=== PATIENT | female | born 1990 | race Caucasian/White ===

== ENCOUNTER → 2023-03-22 08:56 | Outpatient (BNVA) | payer SELFPAY | PROVIDERS: Visit Provider Physician Assistant Medical ==

== ENCOUNTER 2023-06-15 07:45 | Outpatient (REF) | payer OTHER, SELFPAY ==
[2023-06-15 08:39] LABS: Hematocrit 40.9 % (37.0-47.0); Hemoglobin 13.1 g/dl (12.0-16.0); Mean Corpuscular Hemoglobin 27.8 pg (27.0-33.0); Mean Corpuscular Volume 86.7 fL (80.0-98.0); Mean Platelet Volume 8.8 fL (9.4-12.3); Platelet Count 380 X10*3/uL (160-400); Red Blood Count 4.72 X10*6/uL (4.20-5.50); Red Cell Distribution Width 14.3 % (11.0-16.0); White Blood Count 8.9 X10*3/uL (4.8-10.8)
[2023-06-15 09:30] LABS: Alanine Aminotransferase 23 U/L (0-31); Albumin Level 3.7 g/dL (3.5-5.0); Alkaline Phosphatase 48 U/L (39-117); Anion Gap 13 (12-20); Aspartate Amino Transferase 17 U/L (5-31); Bilirubin Total 0.3 mg/dL (0.0-1.0); Blood Urea Nitrogen 12 mg/dL (9-16); Calcium 9.5 mg/dL (8.4-10.2); Carbon Dioxide 26 mmol/L (22-29); Chloride 103 mmol/L (96-108); Estimated Glomerular Filt Rate > 60; Glucose Fasting 93 mg/dL (60-99); Sodium 138 mmol/L (135-145); Total Protein 7.6 g/dL (6.5-8.0)
== END 2023-06-15 07:46 | disposition home or self-care (01) ==
LOC: HO.LAB 07:45
PROVIDERS: PCP Physician Assistant; Visit Provider Physician Assistant
DX: I10 Essential (primary) hypertension (principal)
CPT/HCPCS: 36415; 80053; 85027

== ENCOUNTER 2023-07-13 11:13 | Outpatient (AMB) | payer OTHER, SELFPAY ==
--- NOTE | 2023-07-13 11:15 | MHC.PC.OV ---
Vital Signs 07/13/23 11:17 Height 5 ft 2 in Weight 271 lb BMI 49.6 BP 124/86 Blood Pressure Location Lt brachial Position Sitting Respiration 17 Pulse 94 Pulse Source Pulse Oximeter Pulse Oximetry (%) 98 Oxygen Delivery Method Room Air Intake Visit Reasons: [employer]/BP F/U Intake Note: Patient is a new patient here to establish care for HTN. Pt has not seen a primary care physician in over 5 years. Finger Buff Sewer Required: No Accompanied by: Self / Same As Patient Allergies No Known Allergies Allergy (Verified 07/13/23 11:35) Medication List - Last Reconciled 07/13/23 by Tavo Jo PA-C hydrochlorothiazide 12.5 mg PO DAILY 30 days Tobacco use date assessed: 07/13/23 Dental Screening Dental Screen Date: 07/13/23 Did you have a dental visit in the last 12 months?: Yes Did you have a dental problem in the last 6 months where you did not have access to dental care?: No Was dental information given to patient?: Patient has dentist HPI [employer]/BP F/U HPI Details Patient is a 32-year-old female here today for new patient visit. Patient has a past medical history significant for obesity and hypertension. Was recently started on low-dose hydrochlorothiazide and blood pressures seem to have been better managed. Concerns--> Right wrist tendinitis over the last several years. She attributes this to overuse in her job. She has not really used any anti-inflammatory. .. Hypertension: Blood pressure acceptable today in office, will continue current dose of hydrochlorothiazide. She does mention her blood pressure are likely higher due to stress in her life. 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 Reviewed most recent labs in all within normal range. 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 [facility] Surgical History History of hymenectomy S/P tonsillectomy and adenoidectomy Family History (Updated 07/13/23 @ 11:40 by Tavo Jo PA-C) Mother MVA (motor vehicle accident) IBD (inflammatory bowel disease) Father No problems noted. Social History (Updated 07/13/23 @ 11:40 by Tavo Jo PA-C) Housing: House Alcohol intake: current Alcohol intake frequency: holidays/special occasions only Patient Tobacco Use Status: Never used Tobacco e-Cigarette/Vaping Use: Never Used service: No Current occupational status: employed Current occupation: [employer] Cognitive needs: No Hearing needs: No Vision needs: No Questionnaire PHQ-9 Over the last 2 weeks, how often have you been bothered by any of the following problems? 1. Little interest or pleasure in doing things: not at all 2. Feeling down, depressed, or hopeless: not at all 3. Trouble falling or staying asleep, or sleeping too much: not at all 4. Feeling tired or having little energy: not at all 5. Poor appetite or overeating: not at all 6. Feeling bad about yourself - or that you are a failure or have let yourself or your family down: not at all 7. Trouble concentrating on things, such as reading the newspaper or watching television: not at all 8. Moving or speaking so slowly that other people could have noticed. Or the opposite - being so fidgety or restless that you have been moving around a lot more than usual: not at all 9. Thoughts that you would be better off or of hurting yourself in some way: not at all Total score: 0 Depression Screening Interpretation: Negative Depression Screening Done: Yes 25187 - PHQ-9 Billing: Yes Source: Developed by Drs. Jere Prater, Abigail Simms, Emanuel Watt and colleagues, with an educational joseline from [employer]. Thrive Questionnaire Date Thrive assessed: 07/13/23 I am a: Patient What is your living situation today?: I have a steady place to live Within the past 12 months, did the food you bought not last and you didn't have the money to get more?: Never true Within the past 12 months, did you worry whether your food would run out before you got money to buy more?: Never true Do you have trouble paying for medicines?: No Do you have trouble getting transportation to medical appointments?: No Do you have trouble paying your heating and electricity bill?: No Do you have trouble taking care of your child, family member or friend?: No Do you have trouble with day-to-day activities such as bathing, preparing meals, shopping, managing finances, etc.?: No Are you currently unemployed and looking for a job?: No Are you interested in more education?: No Please select the resources that you would like help with: None Currently or been in a relationship where the following occur: no concerns reported THRIVE Score: 0 AUDIT C Alcohol Use Questionnaire (AUDIT-C) 1. How often do you have a drink containing alcohol?: Monthly or less 2. How many drinks containing alcohol do you have on a typical day when you are drinking?: 1 or 2 3. How often do you have six or more drinks on one occasion?: Never Total Score: 1 PHIL-7 AMB Questionnaire PHIL-7 Date PHIL - 7 assessed: 07/13/23 Feeling nervous, anxious, or on edge: 2 = More than half the days Not being able to stop or control worryin = Nearly every day Worrying too much about different things: 3 = Nearly every day Trouble relaxin = Nearly every day Being so restless that it is hard to sit still: 2 = More than half the days Becoming easily annoyed or irritable: 2 = More than half the days Feeling afraid as if something awful might happen: 2 = More than half the days Total PHIL-7 score (0-4 normal; 5-9 mild; 10-14 moderate; 15-21 severe): 17 Source: Developed by Drs. Jere Prater, Abigail Simms, Emanuel Watt and colleagues, with an educational joseline from [employer]. PHIL-7 Assessment Billing PHIL-7 Assessment Tool: PHIL-7 Assessment 08795 Review of Systems Const Denies headache(s) Eyes Denies loss of vision ENT Denies vertigo, Denies dizziness, Denies headache(s) and Denies sore throat Card Denies chest pain, Denies leg edema and Denies lightheadedness Resp Denies cough, Denies hemoptysis and Denies wheezing GI Denies abdominal pain, Denies melena, Denies constipation, Denies diarrhea and Denies vomiting Denies urinary frequency, Denies dysuria and Denies urinary urgency Musc Denies arthralgias, Denies joint swelling, Denies numbness and Denies tingling Neuro Denies Abnormal speech present, Denies behavioral changes, Denies vertigo, Denies dizziness, Denies headache(s), Denies loss of vision, Denies memory loss, Denies numbness and Denies tingling Psych Denies anxiety, Denies behavioral changes, Denies depression, Denies memory loss and Denies panic attacks Mitch/Lymph Denies easy bleeding and Denies easy bruising Aller/Immun Denies wheezing Physical exam (Primary Care) Vital Signs: Last Vital Signs Pulse 94 07/13/23 11:17 Resp 17 07/13/23 11:17 BP 124/86 07/13/23 11:17 Pulse Ox 98 07/13/23 11:17 Oxygen Delivery Method Room Air 07/13/23 11:17 BMI result Body Mass Index 49.6 BMI Assessment/Plan discussion: High BMI High, discussed plan: lifestyle, weight reduction, dietary and physical activity Tobacco/Smoking Status: Tobacco use Status Tobacco use date assessed 07/13/23 07/13/23 11:26 Patient Tobacco Use Status Never used Tobacco 07/13/23 11:40 e-Cigarette/Vaping Use Never Used 07/13/23 11:40 PHQ-9: PHQ-9 Score PHQ-9: Total score 0 07/13/23 11:58 Depression Screening Interpretation: Negative Thrive Assessment: Date of Thrive Assessment Date Thrive assessed 07/13/23 07/13/23 11:26 Currently or been in a relationship where the following occur: no concerns reported Const General: healthy appearing, no acute distress, alert and awake Nutritional Appearance: well nourished Orientation/consciousness: oriented to person, oriented to place and oriented to time HENMT Ears: TM's normal bilaterally General nose exam: Normal nasal mucous membranes and turbinates present Eyes Conjunctivae: conjunctivae normal Sclerae: sclerae normal Pupils: Equal, round and reactive pupils present Neck Neck: Yes no lymphadenopathy and Yes no JVD Thyroid: Thyroid normal Carotids: no bruits Resp Effort & Inspection: normal respiratory effort and not tachypneic Auscultation: no crackles, no rales, no rhonchi and no wheezes Cardio Rate: regular rate Rhythm: regular rhythm Heart sounds: no murmurs and normal S1 and S2 GI Palpation (GI): Soft to palpation, nontender, no hepatomegaly and no splenomegaly Auscultation: normal bowel sounds Skin General skin exam: no rashes or lesions noted and dry skin Neuro General: oriented to person, oriented to place and oriented to time Cranial nerves: Yes Equal, round and reactive pupils present Speech: No Abnormal speech present Gait exam (Neuro): Normal gait present Motor exam (neuro): no tremor noted Extrem Right upper extremity: full ROM Left upper extremity: full ROM Right lower extremity: full ROM; no edema Left lower extremity: full ROM; no edema Psych Mental Status: mental status grossly normal Speech and movement: Normal speech and movement present Affect: normal affect Attitude: cooperative Thought process: Normal thought process present Immunizations Boostrix Tdap 2.5 Lf unit-8 mcg-5 Lf/0.5 mL intramuscular syringe Performing Provider: Tavo Jo PA-C [facility] Administered by: CHHAYA Tarango on 07/13/23 11:58 Dose Route Admin Location Dispensed Lot Number Expiration Date 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 Continues on hydrochlorothiazide 12.5 mg. She attributes her higher blood pressures to stress in life. She takes care of her 90-year-old green. Who needs [id number] care. Goal blood pressures to remain below 140/90 (2) Right wrist tendinitis: Code(s): M77.8 - Other enthesopathies, not elsewhere classified Plan: Patient reports she has been suffering with right wrist tendinitis for years now. Has done physical therapy in the past which has been helpful. Will plan to use an anti-inflammatory as needed, will use risk compression/brace for stabilization. Will consider imaging if wrist swelling/ symptoms worsen (3) PHIL (generalized anxiety disorder): Code(s): F41.1 - Generalized anxiety disorder Plan: Has stress in her life which is causing a lot of havoc. She is interested in speaking with a mental health therapist (4) Obese: Code(s): E66.9 - Obesity, unspecified Qualifiers: Body mass index: BMI 45.0-49.9 Obesity classification: adult class 3 (BMI >= 40) Obesity type: due to excess calories Serious obesity comorbidity presence: without serious comorbidity Qualified Code(s): E66.01 - Morbid (severe) obesity due to excess calories; Z68.42 - Body mass index [BMI] 45.0-49.9, adult Plan: Does understand her BMI is over 40 and will work on being more physically active and adapting to better eating habits to reduce her weight. We did discuss the possibility of starting injectable weight loss medication though hold off on this for now. Orders: Orders Comprehensive Met. Panel Today I10 - Essential (primary) hypertension Microalbumin, Random (w Creat) Today I10 - Essential (primary) hypertension TDaP Immunization Today I10 - Essential (primary) hypertension, Z23 - Encounter for immunization Referrals Counseling Referral F41.1 - Generalized anxiety disorder, Z13.220 - Encounter for screening for lipoid disorders Medications: New meloxicam 15 mg PO DAILY 14 days PRN 14 tabs 1RF pain (scale score 7-10) M77.8 - Other enthesopathies, not elsewhere classified Changed From hydrochlorothiazide 12.5 mg PO DAILY 30 days 30 tabs 1RF I10 - Essential (primary) hypertension To hydrochlorothiazide 12.5 mg PO DAILY 90 days 90 tabs 1RF I10 - Essential (primary) hypertension Coding Level of Care Code New Pt Level 4 (49283) Diagnoses Primary hypertension I10 Hypertension type: primary hypertension Right wrist tendinitis M77.8 PHIL (generalized anxiety disorder) F41.1 Class 3 severe obesity due to excess calories without serious comorbidity with body mass index (BMI) of 45.0 to 49.9 in adult E66.01; Z68.42 Body mass index: BMI 45.0-49.9 Obesity classification: adult class 3 (BMI >= 40) Obesity type: due to excess calories Serious obesity comorbidity presence: without serious comorbidity Additional Codes PHIL-7 Assessment Billing - PHIL-7 Assessment Tool: PHIL-7 Assessment [id number] ([id number])
[2023-07-13 11:17] VITALS: BP 124/86; PULSE 94; RESP 17; O2SAT 98; BMI 49.6
== END 2023-07-13 11:58 | disposition home or self-care (01) ==
PROVIDERS: PCP Physician Assistant; Visit Provider Physician Assistant
DX: Z23 Encounter for immunization (principal); I10 Essential (primary) hypertension; M77.8 Other enthesopathies, not elsewhere classified; E66.01 Morbid (severe) obesity due to excess calories; Z68.42 Body mass index [BMI] 45.0-49.9, adult
CPT/HCPCS: 90471; 90715; 99204

== ENCOUNTER 2024-01-16 08:43 | Outpatient (REF) | payer OTHER, SELFPAY ==
[2024-01-16 10:40] LABS: Albumin Level 3.7 g/dL (3.5-5.0); Alkaline Phosphatase 52 U/L (39-117); Anion Gap 12 (12-20); Bilirubin Total 0.3 mg/dL (0.0-1.0); Blood Urea Nitrogen 10 mg/dL (9-16); Calcium 9.1 mg/dL (8.4-10.2); Carbon Dioxide 25 mmol/L (22-29); Chloride 104 mmol/L (96-108); Estimated Glomerular Filt Rate > 60; Glucose Random 97 mg/dL (60-115); Potassium 3.9 mmol/L (3.3-5.1); Sodium 137 mmol/L (135-145); Total Protein 7.4 g/dL (6.5-8.0)
[2024-01-16 12:40] LABS: Alanine Aminotransferase 23 U/L (0-31); Aspartate Amino Transferase 21 U/L (5-31)
== END 2024-01-16 08:44 | disposition home or self-care (01) ==
LOC: HO.LAB 08:43
PROVIDERS: PCP Physician Assistant; Visit Provider Physician Assistant
DX: I10 Essential (primary) hypertension (principal)
CPT/HCPCS: 36415; 80053

== ENCOUNTER 2024-01-18 15:51 | Outpatient (AMB) | payer OTHER, SELFPAY ==
--- NOTE | 2024-01-18 16:08 | A.OFFPC_ITS ---
Vital Signs 01/18/24 16:26 Height 5 ft 2 in Weight 279 lb 8 oz BMI 51.1 BP 150/92 H Blood Pressure Location Lt brachial Position Sitting Pulse 104 H Pulse Source Pulse Oximeter Pulse Oximetry (%) 98 Oxygen Delivery Method Room Air Intake Visit Reasons: Annual Exam Intake Note: Patient is here today for a physical. 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 Patient has a past medical history significant for obesity and hypertension. --> she reports her stress has been abou t the same though her 90-year-old grandmother is now in a half-way. She is now going to be moving into her grandmother's home that is causing some stress. She is speaking with a mental health therapist that has helped her a lot with her anxiety and stress. Concerns-- Janae reports she has been having some trouble sleeping, she mentioned she will try melatonin to help her sleep. She is not interested in sleeping aid prescription medication at this time .. Hypertension: Has not been taking hydrochlorothiazide. Blood pressure elevated today in office. Hydrochlorothiazide has worked for her to manage her blood pressure in the past. She is willing to restart hydrochlorothiazide. Reviewed most recent labs in all within normal range. 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 Laboratory Tests 06/15/23 01/16/24 08:04 09:03 RBC 4.72 Creatinine 0.73 0.70 Random Glucose 97 PFSH Surgical History History of hymenectomy S/P tonsillectomy and adenoidectomy Family History Mother MVA (motor vehicle accident) IBD (inflammatory bowel disease) Father No problems noted. Social History (Updated 01/18/24 @ 16:36 by Tavo Jo PA-C) Housing: House Alcohol intake: current Alcohol intake frequency: holidays/special occasions only Alcohol type: beer Patient Tobacco Use Status: Never used Tobacco e-Cigarette/Vaping Use: Never Used service: No Current occupational status: employed Current occupation: [employer] Cognitive needs: No Hearing needs: No Vision needs: No Questionnaire PHQ-9 Over the last 2 weeks, how often have you been bothered by any of the following problems? 1. Little interest or pleasure in doing things: several days 2. Feeling down, depressed, or hopeless: several days 3. Trouble falling or staying asleep, or sleeping too much: several days 4. Feeling tired or having little energy: several days 5. Poor appetite or overeating: several days 6. Feeling bad about yourself - or that you are a failure or have let yourself or your family down: not at all 7. Trouble concentrating on things, such as reading the newspaper or watching television: several days 8. Moving or speaking so slowly that other people could have noticed. Or the opposite - being so fidgety or restless that you have been moving around a lot more than usual: not at all 9. Thoughts that you would be better off or of hurting yourself in some way: not at all Total score: 6 68802 - PHQ-9 Billing: Yes Source: Developed by Drs. Jere Prater, Abigail Simms, Emanuel Watt and colleagues, with an educational joseline from [employer]. Thrive Questionnaire Date Thrive assessed: 01/18/24 I am a: Patient What is your living situation today?: I have a steady place to live Within the past 12 months, did the food you bought not last and you didn't have the money to get more?: Never true Within the past 12 months, did you worry whether your food would run out before you got money to buy more?: Never true Do you have trouble paying for medicines?: No Do you have trouble getting transportation to medical appointments?: No Do you have trouble paying your heating and electricity bill?: No Do you have trouble taking care of your child, family member or friend?: No Do you have trouble with day-to-day activities such as bathing, preparing meals, shopping, managing finances, etc.?: No Are you currently unemployed and looking for a job?: No Are you interested in more education?: No Please select the resources that you would like help with: None Currently or been in a relationship where the following occur: No concerns reported THRIVE Score: 0 AUDIT C Alcohol Use Questionnaire (AUDIT-C) 1. How often do you have a drink containing alcohol?: Monthly or less 2. How many drinks containing alcohol do you have on a typical day when you are drinking?: 1 or 2 3. How often do you have six or more drinks on one occasion?: Never Total Score: 1 PHIL-7 AMB Questionnaire PHIL-7 Date PHIL - 7 assessed: 01/18/24 Feeling nervous, anxious, or on edge: 2 = More than half the days Not being able to stop or control worryin = Several days Worrying too much about different things: 2 = More than half the days Trouble relaxin = Nearly every day Being so restless that it is hard to sit still: 2 = More than half the days Becoming easily annoyed or irritable: 3 = Nearly every day Feeling afraid as if something awful might happen: 1 = Several days Total PHIL-7 score (0-4 normal; 5-9 mild; 10-14 moderate; 15-21 severe): 14 Source: Developed by Drs. Jere Prater, Abigail Simms, Emanuel Watt and colleagues, with an educational joseline from [employer]. PHIL-7 Assessment Billing PHIL-7 Assessment Tool: PHIL-7 Assessment 64530 Review of Systems Const Denies excessive sweating, Denies fatigue and Denies headache(s) Eyes Denies loss of vision ENT Denies vertigo, Denies dizziness, Denies headache(s) and Denies sore throat Card Denies chest pain, Denies leg edema and Denies lightheadedness Resp Denies cough, Denies hemoptysis and Denies wheezing GI Denies abdominal pain, Denies melena, Denies constipation, Denies diarrhea and Denies vomiting Denies urinary frequency, Denies dysuria and Denies urinary urgency Musc Denies arthralgias, Denies joint swelling, Denies numbness and Denies tingling Skin/Breast Denies rash and Denies skin ulcer Neuro Denies Abnormal speech present, Denies behavioral changes, Denies vertigo, Denies dizziness, Denies headache(s), Denies loss of vision, Denies memory loss, Denies numbness and Denies tingling Psych Denies anxiety, Denies behavioral changes, Denies depression, Denies memory loss and Denies panic attacks Endo Denies excessive sweating, Denies fatigue, Denies flushing, Denies polydipsia and Denies polyuria Mitch/Lymph Denies easy bleeding and Denies easy bruising Aller/Immun Denies wheezing Physical exam (Primary Care) Vital Signs: Last Vital Signs Pulse 104 H 01/18/24 16:26 BP 150/92 H 01/18/24 16:26 Pulse Ox 98 01/18/24 16:26 Oxygen Delivery Method Room Air 01/18/24 16:26 BMI result Body Mass Index 51.1 Tobacco/Smoking Status: Tobacco use Status Tobacco use date assessed 07/13/23 01/18/24 16:09 Patient Tobacco Use Status Never used Tobacco 01/18/24 16:36 e-Cigarette/Vaping Use Never Used 01/18/24 16:36 PHQ-9: PHQ-9 Score PHQ-9: Total score 6 01/19/24 06:59 Thrive Assessment: Date of Thrive Assessment Date Thrive assessed 01/18/24 01/18/24 16:09 Currently or been in a relationship where the following occur: No concerns reported Const General: healthy appearing, no acute distress, alert and awake Nutritional Appearance: well nourished Orientation/consciousness: oriented to person, oriented to place and oriented to time [facility] Head: Yes normocephalic Ears: TM's normal bilaterally General nose exam: Normal nasal mucous membranes and turbinates present Face and sinus: No sinus tenderness Mouth: Normal oral and palatal mucosa present and tongue normal Teeth and gingiva: dentition normal and gingiva normal Throat: Yes posterior oropharynx normal, Yes tonsils normal and Yes uvula midline Eyes Conjunctivae: conjunctivae normal Sclerae: sclerae normal Pupils: Equal, round and reactive pupils present EOM: EOMs intact bilaterally Direct Ophthalmoscopy: No no photophobia Neck Neck: Yes no lymphadenopathy and Yes no JVD Thyroid: Thyroid normal Carotids: no bruits Chest Chest palpation & inspection: no tenderness Resp Effort & Inspection: normal respiratory effort and not tachypneic Auscultation: no crackles, no rales, no rhonchi and no wheezes Cardio Jugular venous distension: no JVD Rate: regular rate Rhythm: regular rhythm Heart sounds: no murmurs and normal S1 and S2 Bruits: no carotid bruits Peripheral pulses: Peripheral pulses 2+ throughout GI Inspection: Yes normal to inspection, No abdominal wall ecchymosis and No visible herniation Palpation (GI): Soft to palpation, nontender, no hepatomegaly and no spleno megaly Auscultation: normal bowel sounds General: Yes no CVA tenderness Back/Spine/Pelvis Back: no CVA tenderness and No back tenderness Cervical Spine: cervical ROM normal Thoracic/Lumbar Spine: thoracic and lumbar spine normal to inspection, straight leg raise negative bilaterally, No thoraco-lumbar ROM limited and No lumbar spinal tenderness Skin General skin exam: no rashes or lesions noted and dry skin Lesions: no lesions Rashes: no rashes Wounds: no wounds Neuro General: oriented to person, oriented to place and oriented to time Cranial nerves: Yes Equal, round and reactive pupils present Cognition (Neuro): normal cognition Speech: No Abnormal speech present Gait exam (Neuro): Normal gait present Motor exam (neuro): no tremor noted Extrem Right upper extremity: full ROM Left upper extremity: full ROM Right lower extremity: full ROM; no edema Left lower extremity: full ROM; no edema Psych Appearance: grossly normal Mental Status: mental status grossly normal Speech and movement: Normal speech and movement present Affect: normal affect Attitude: cooperative Thought process: Normal thought process present Office Procedures Flu Questionnaire Does the patient have a severe egg allergy?: No Immunizations Fluarix Triv [id number] (PF) 45 mcg (15 mcg x 3)/0.5 mL IM syringe Performing Provider: Tavo Jo PA-C [facility] Documented (not given) by: CHHAYA Tarango on 01/18/24 16:14 Reason Not Given: Patient Refused Coding Level of Care Code Est Pt Prev Care 18-39y([id number]) Diagnoses Annual physical exam Z00.00 Primary hypertension I10 Hypertension type: primary hypertension Class 3 obesity E66.813 PHIL (generalized anxiety disorder) F41.1 Additional Codes PHIL-7 Assessment Billing - PHIL-7 Assessment Tool: PHIL-7 Assessment [id number] ([id number]) Assessment & Plan Assessment & Plan (1) Annual physical exam: Code(s): Z00.00 - Encounter for general adult medical examination without abnormal findings Category: Medical Plan: As per HPI (2) HTN (hypertension): Code(s): I10 - Essential (primary) hypertension Category: Medical Qualifiers: Hypertension type: primary hypertension Qualified Code(s): I10 - Essential (primary) hypertension Plan: Patient's blood pressure elevated today in office. She will restart her hydrochlorothiazide for better blood pressure control. Goal blood pressures to remain below 140/90 (3) Class 3 obesity: Code(s): E66.813 - Obesity, class 3 Category: Medical Plan: Patient does understand her BMI is above 50 will work on better eating habits and more physical activity to reduce her weight. (4) PHIL (generalized anxiety disorder): Code(s): F41.1 - Generalized anxiety disorder Category: Medical Plan: Patient does report her anxiety is still present though has been better since talking to a mental health therapist. She has been having some trouble sleeping as she has had multiple wake ups with racing thoughts. She will try melatonin to help her sleep. Orders: Orders Influenza [id number] Immunization 01/18/24 Z23 - Encounter for immunization Medications: Refilled hydrochlorothiazide 12.5 mg PO DAILY 90 tabs 1RF 90 days I10 - Essential (primary) hypertension Patient Instructions: Goal: Blood pressure to be below 140/90 Barriers: Adherence to physical activity and healthy eating habits
[2024-01-18 16:26] VITALS: BP 150/92; PULSE 104; O2SAT 98; BMI 51.1
== END 2024-01-18 16:51 | disposition home or self-care (01) ==
PROVIDERS: PCP Physician Assistant; Visit Provider Physician Assistant
DX: Z00.00 Encounter for general adult medical examination without abnormal findings (principal); I10 Essential (primary) hypertension; E66.813 Obesity, class 3; Z68.43 Body mass index [BMI] 50.0-59.9, adult; F41.1 Generalized anxiety disorder

== ENCOUNTER → 2024-01-18 15:51 | Outpatient (BNVA) | payer OTHER, SELFPAY | PROVIDERS: PCP Physician Assistant; Visit Provider Physician Assistant | DX: Z00.00 Encounter for general adult medical examination without abnormal findings (principal); I10 Essential (primary) hypertension; F41.1 Generalized anxiety disorder; E66.813 Obesity, class 3; Z68.43 Body mass index [BMI] 50.0-59.9, adult; Z28.21 Immunization not carried out because of patient refusal | CPT/HCPCS: 90471; 96127 ==

== ENCOUNTER 2024-07-19 15:40 | Outpatient (AMB) | payer OTHER, SELFPAY ==
[2024-07-19 15:45] VITALS: BP 168/98; PULSE 99; TEMP 36.2; O2SAT 98; BMI 50.8
--- NOTE | 2024-07-19 15:45 | A.OFFPC_ITS ---
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: No Accompanied by: Self / Same As Patient Allergies No Known Allergies Allergy (Verified 07/19/24 16:11) Medication List - Last Reconciled 07/19/24 by Tavo Jo PA-C hydrochlorothiazide 12.5 mg PO DAILY 90 days L norgest/e.estradiol-e.estrad 0.15 mg-30 mcg (84)/10 mcg (7) 1 tab PO DAILY meloxicam 15 mg PO DAILY PRN 14 days Tobacco use date assessed: 07/19/24 Dental Screening Dental Screen Date: 07/19/24 Did you have a dental visit in the last 12 months?: Yes Did you have a dental problem in the last 6 months where you did not have access to dental care?: No Was dental information given to patient?: Patient has dentist HPI 6 mo follow up HPI Details Patient is a 33-year-old female here today for follow-up visit. Patient has a past medical history significant for obesity and hypertension. Concerns-- Janae reports she has been having some trouble sleeping, she mentioned she will try melatonin to help her sleep. She is not interested in sleeping aid prescription medication at this emelina. She also does report being fairly stressed in her personal life. PHQ-9 and phil 7 scores positive today in office. .. Hypertension: Has not been taking hydrochlorothiazide. Blood pressure elevated today in office. Hydrochlorothiazide has worked for her to manage her blood pressure in the past. She is willing to restart hydrochlorothiazide. .. Class 3 obesity: Patient does understand her BMI is over 45 and will work on being more physically active and adapting to better eating habits to reduce her weight PFSH Surgical History History of hymenectomy S/P tonsillectomy and adenoidectomy Family History Mother MVA (motor vehicle accident) IBD (inflammatory bowel disease) Father No problems noted. Social History Housing: House Alcohol intake: current Alcohol intake frequency: holidays/special occasions only Alcohol type: beer Patient Tobacco Use Status: Never used Tobacco e-Cigarette/Vaping Use: Never Used service: No Current occupational status: employed Current occupation: [employer] Cognitive needs: No Hearing needs: No Vision needs: No Questionnaire PHQ-9 Over the last 2 weeks, how often have you been bothered by any of the following problems? 1. Little interest or pleasure in doing things: more than half the days 2. Feeling down, depressed, or hopeless: more than half the days 3. Trouble falling or staying asleep, or sleeping too much: nearly every day 4. Feeling tired or having little energy: nearly every day 5. Poor appetite or overeating: nearly every day 6. Feeling bad about yourself - or that you are a failure or have let yourself or your family down: nearly every day 7. Trouble concentrating on things, such as reading the newspaper or watching television: several days 8. Moving or speaking so slowly that other people could have noticed. Or the opposite - being so fidgety or restless that you have been moving around a lot more than usual: several days 9. Thoughts that you would be better off or of hurting yourself in some way: not at all Total score: 18 Depression Screening Interpretation: Positive Depression Screening Follow-up: Existing condition Depression Screening Done: Yes 15478 - PHQ-9 Billing: Yes Source: Developed by Drs. Jere Prater, Abigail Simms, Emanuel Watt and colleagues, with an educational joseline from [employer]. Thrive Questionnaire Date Thrive assessed: 07/19/24 I am a: Patient What is your living situation today?: I have a steady place to live Within the past 12 months, did the food you bought not last and you didn't have the money to get more?: Never true Within the past 12 months, did you worry whether your food would run out before you got money to buy more?: Never true Do you have trouble paying for medicines?: No Do you have trouble getting transportation to medical appointments?: No Do you have trouble paying your heating and electricity bill?: No Do you have trouble taking care of your child, family member or friend?: No Do you have trouble with day-to-day activities such as bathing, preparing meals, shopping, managing finances, etc.?: No Are you currently unemployed and looking for a job?: No Are you interested in more education?: No Please select the resources that you would like help with: None Currently or been in a relationship where the following occur: No concerns reported THRIVE Score: 0 AUDIT C Alcohol Use Questionnaire (AUDIT-C) 1. How often do you have a drink containing alcohol?: Monthly or less 2. How many drinks containing alcohol do you have on a typical day when you are drinking?: 1 or 2 3. How often do you have six or more drinks on one occasion?: Never Total Score: 1 PHIL-7 AMB Questionnaire PHIL-7 Date PHIL - 7 assessed: 07/19/24 Feeling nervous, anxious, or on edge: 3 = Nearly every day Not being able to stop or control worryin = Nearly every day Worrying too much about different things: 3 = Nearly every day Trouble relaxin = Nearly every day Being so restless that it is hard to sit still: 1 = Several days Becoming easily annoyed or irritable: 3 = Nearly every day Feeling afraid as if something awful might happen: 1 = Several days Total PHIL-7 score (0-4 normal; 5-9 mild; 10-14 moderate; 15-21 severe): 17 Source: Developed by Drs. Jere Prater, Abigail Simms, Emanuel Watt and colleagues, with an educational joseline from [employer]. PHIL-7 Assessment Billing PHIL-7 Assessment Tool: PHIL-7 Assessment 14730 Review of Systems Const Denies headache(s) Eyes Denies loss of vision ENT Denies vertigo, Denies dizziness, Denies headache(s) and Denies sore throat Card Denies chest pain, Denies leg edema and Denies lightheadedness Resp Denies cough, Denies hemoptysis and Denies wheezing GI Denies abdominal pain, Denies melena, Denies constipation, Denies diarrhea and Denies vomiting Denies urinary frequency, Denies dysuria and Denies urinary urgency Musc Denies arthralgias, Denies joint swelling, Denies numbness and Denies tingling Neuro Denies Abnormal speech present, Denies behavioral changes, Denies vertigo, Denies dizziness, Denies headache(s), Denies loss of vision, Denies memory loss, Denies numbness and Denies tingling Psych Denies anxiety, Denies behavioral changes, Denies depression, Denies memory loss and Denies panic attacks Mitch/Lymph Denies easy bleeding and Denies easy bruising Aller/Immun Denies wheezing Physical exam (Primary Care) Vital Signs: Last Vital Signs Temp 97.1 F 07/19/24 15:45 Pulse 99 07/19/24 15:45 BP 168/98 H 07/19/24 15:45 Pulse Ox 98 07/19/24 15:45 Oxygen Delivery Method Room Air 07/19/24 15:45 Care Plan Goal for BP management: Will restart hydrochlorothiazide to take in the mornings. She promises to be more adherent to the medication Next steps: Monitor blood pressure at home while being adherent hydrochlorothiazide. Will consider additional blood pressure medication if blood pressures remain above 140 systolic BMI result Body Mass Index 50.8 BMI Assessment/Plan discussion: High BMI High, discussed plan: lifestyle, weight reduction, dietary and physical activity Tobacco/Smoking Status: Tobacco use Status Tobacco use date assessed 07/19/24 07/19/24 16:09 Patient Tobacco Use Status Never used Tobacco 07/19/24 15:46 e-Cigarette/Vaping Use Never Used 07/19/24 15:46 PHQ-9: PHQ-9 Score PHQ-9: Total score 18 07/23/24 16:46 Depression Screening Interpretation: Positive Depression Screening Follow-up: Existing condition Thrive Assessment: Date of Thrive Assessment Date Thrive assessed 07/19/24 07/19/24 15:46 Currently or been in a relationship where the following occur: No concerns reported Const General: healthy appearing, no acute distress, alert and awake Nutritional Appearance: well nourished Orientation/consciousness: oriented to person, oriented to place and oriented to time HENMT Ears: TM's normal bilaterally General nose exam: Normal nasal mucous membranes and turbinates present Eyes Conjunctivae: conjunctivae normal Sclerae: sclerae normal Pupils: Equal, round and reactive pupils present Neck Neck: Yes no lymphadenopathy and Yes no JVD Thyroid: Thyroid normal Carotids: no bruits Resp Effort & Inspection: normal respiratory effort and not tachypneic Auscultation: no crackles, no rales, no rhonchi and no wheezes Cardio Rate: regular rate Rhythm: regular rhythm Heart sounds: no murmurs and normal S1 and S2 GI Palpation (GI): Soft to palpation, nontender, no hepatomegaly and no splenomegaly Auscultation: normal bowel sounds Skin General skin exam: no rashes or lesions noted and dry skin Neuro General: oriented to person, oriented to place and oriented to time Cranial nerves: Yes Equal, round and reactive pupils present Speech: No Abnormal speech present Gait exam (Neuro): Normal gait present Motor exam (neuro): no tremor noted Extrem Right upper extremity: full ROM Left upper extremity: full ROM Right lower extremity: full ROM; no edema Left lower extremity: full ROM; no edema Psych Mental Status: mental status grossly normal Speech and movement: Normal speech and movement present Affect: normal affect Attitude: cooperative Thought process: Normal thought process present Coding Level of Care Code Est Pt Level 4 (56399) Diagnoses Primary hypertension I10 Hypertension type: primary hypertension Class 3 obesity E66.813 Right wrist tendinitis M77.8 PHIL (generalized anxiety disorder) F41.1 MDD (major depressive disorder), recurrent episode, moderate F33.1 Environmental allergies Z91.09 Additional Codes PHIL-7 Assessment Billing - PHIL-7 Assessment Tool: PHIL-7 Assessment 98027 ([id number]) PHQ-9 - 00287 - PHQ-9 Billing: Yes ([id number]) Assessment & Plan Assessment & Plan (1) HTN (hypertension): Code(s): I10 - Essential (primary) hypertension Category: Medical Qualifiers: Hypertension type: primary hypertension Qualified Code(s): I10 - Essential (primary) hypertension Plan: Patient's blood pressure elevated today in office. She will restart her hydrochlorothiazide for better blood pressure control. Goal blood pressures to remain below 140/90 (2) Class 3 obesity: Code(s): E66.813 - Obesity, class 3 Category: Medical Plan: Patient does understand her BMI is above 50 will work on better eating habits and more physical activity to reduce her weight. (3) Right wrist tendinitis: Code(s): M77.8 - Other enthesopathies, not elsewhere classified Category: Medical Plan: Continues to have wrist tendinitis to which she will use p.r.n. NSAID. She has made modifications at her job using the computer mouse. She has done physical therapy in the past for similar episodes which was somewhat helpful. (4) PHIL (generalized anxiety disorder): Code(s): F41.1 - Generalized anxiety disorder Category: Medical Plan: Patient's PHIL-7 score positive for anxiety which has been existing condition for her. She does have personal issues that cause her more stress and anxiety. She is not interested in medication or mental health therapy at this time. (5) MDD (major depressive disorder), recurrent episode, moderate: Code(s): F33.1 - Major depressive disorder, recurrent, moderate Category: Medical Plan: As above patient's PHQ-9 score positive for depression which has been existing condition for her. (6) Environmental allergies: Code(s): Z91.09 - Other allergy status, other than to drugs and biological substances Category: Medical Plan: Patient has been suffering with seasonal allergies to which she has been using an over the counter allergy medication without much relief. She is willing to try cetirizine daily for allergy symptoms. Orders: Orders Comprehensive [place]. Panel Fast 07/19/24 I10 - Essential (primary) hypertension Complete Blood Count no Diff 07/19/24 I10 - Essential (primary) hypertension Microalbumin, Random (w Creat) 07/19/24 I10 - Essential (primary) hypertension Medications: New 2 naproxen 375 mg PO BID 20 tabs 0RF 10 days M77.8 - Other enthesopathies, not elsewhere classified cetirizine 10 mg PO DAILY 30 tabs 1RF allergy symptoms 30 days Z91.09 - Other allergy status, other than to drugs and biological substances Refilled hydrochlorothiazide 12.5 mg PO DAILY 90 tabs 1RF 90 days I10 - Essential (primary) hypertension
== END 2024-07-19 16:32 | disposition home or self-care (01) ==
LOC: HO.HMCH 15:41
PROVIDERS: PCP Physician Assistant; Visit Provider Physician Assistant
DX: I10 Essential (primary) hypertension (principal); F33.1 Major depressive disorder, recurrent, moderate; E66.813 Obesity, class 3; Z68.43 Body mass index [BMI] 50.0-59.9, adult; M77.8 Other enthesopathies, not elsewhere classified; F41.1 Generalized anxiety disorder; Z91.09 Other allergy status, other than to drugs and biological substances

== ENCOUNTER → 2024-07-19 15:40 | Outpatient (BNVA) | payer OTHER, SELFPAY | PROVIDERS: PCP Physician Assistant; Visit Provider Physician Assistant | DX: I10 Essential (primary) hypertension (principal); E66.813 Obesity, class 3; Z68.43 Body mass index [BMI] 50.0-59.9, adult; M77.8 Other enthesopathies, not elsewhere classified; F41.1 Generalized anxiety disorder; F33.1 Major depressive disorder, recurrent, moderate; Z91.09 Other allergy status, other than to drugs and biological substances | CPT/HCPCS: 96127 ==

== ENCOUNTER 2025-01-17 09:13 | Outpatient (REF) | payer OTHER, SELFPAY ==
--- OUTSIDE RECORDS SUMMARY | 2025-01-17 08:00 | XMS_ITS | Encounter Summary ---
Author Organization [facility] Address [address] [place] [address] [place] [phone] Phone Care Team Providers Care Drum Cleaner Name Role Phone Tavo Jo Primary Care Provider + Reason for Visit * Reason Comments Annual Exam Encounter Details Date Type Department Care Team (Latest Contact Info) Description 01/17/2025 8:00 AM EDT Office Visit [facility] [address] [place] [id number] Ella Vale MD [address] [facility], [address] [place] [address] [email or web address] Encounter for gynecological examination without abnormal finding (Primary Dx); Encounter for contraceptive management, unspecified type; Screening for cervical cancer; Screening for human immunodeficiency virus; Need for hepatitis C screening test; Need for hepatitis B screening test; Screen for STD (sexually transmitted disease) Social History Tobacco Use Types Packs/Day Years Used Date Smoking Tobacco: Never Smokeless Tobacco: Never Alcohol Use Standard Drinks/Week Comments Yes 0 (1 standard drink = 0.6 oz pur e alcohol) occ Education Answer Date Recorded Are you interested in more education? Not on adenike e 07/23/2022 Are you concerned about learning? Not on file 07/23/2022 No 07/23/2022 No 07/23/2022 Digital Access Answer Date Recorded No 08/20/2022 No 08/20/2022 Reliable internet access at home? Not on file 08/20/2022 Device with a working camera? Not on file Comments No Sex and Gender Information Value Date Recorded Sex Assigned at Not on file Legal Sex Female 9:06 PM EDT Gender Identity Not on file Sexual Orientation Not on file documented as of this encounter Last Filed Vital Signs Vital Sign Reading Time Taken Comments Blood Pressure 132/82 01/17/2025 8:03 AM EDT Pulse - - Temperature - - Respiratory Rate - - Oxygen Saturation - - Inhaled Oxygen Concentration - - Weight 113.4 kg (250 lb) 01/17/2025 8:03 AM EDT pt reported Height - - Body Mass Index 42.91 06/22/2023 3:08 PM EDT documented in this encounter Patient Instructions * Patient Instructions* Ella Vale MD - 01/17/2025 8:00 AM EDT Routine recommendations: If is at all possible - take at least 400 mcg of folate daily in a multivitamin or a B complex of by itself, as this reduces risk of a fetus with neural tube defect if taken prior to conception STD screening : annual chlamydia screen til age 25 if sexually active; HIV at least once at some point in time For strong bones: Vitamin D at least 1000 units daily supplement, unless you are taking in 4 servings of dairy or other D source daily; a free weight strength training program at least twice a week For cardiovascular health: exercise for a good 30 minutes at least 4 times a week; stay active at work; eat a diet with lot of vegetables and fruits ( should be at largest serving at any meal), eliminate or have as little added sugars as possible; remember juice, sodas are a huge sugar load, and artificial sweeteners cause us to crave sweet foods; Fried and high fat foods are not healthy Pap smears - age 21- 30 , every 3 years, without a routine test for Human Papilloma Virus (HPV) Age 30-65, every 5 years with HPV co- testing, every 3 years without Age 65 + - paps no longer done with some exceptions, such as women exposed to STANLEY in utero, or treatment for cervical dysplasia within the previous 25 years Lipid or cholesterol screening- consult with your primary care documented in this encounter Plan of Treatment Scheduled Orders Name Type Priority Associated Diagnoses Orde r Schedule HIV-1/2 antigen/antibody Microbiology Routine Screening for human immunodeficiency virus Expected: 01/17/2025, Expires: 01/17/2026 Hepatitis C antibody, qualitative Microbiology Routine Need for hepatitis C screening test Expected: 01/17/2025, Expires: 01/17/2026 Hepatitis B surface antigen Microbiology Routine Need for hepatitis B screening test Expected: 01/17/2025, Expires: 01/17/2026 Syphilis antibody screen Lab Routine Screen for STD (sexually transmitted disease) Expected: 01/17/2025, Expires: 01/17/2026 documented as of this encounter Visit Diagnoses Diagnosis Encounter for contraceptive management, unspecified type Need for hepatitis C screening test Special screening examination for other specified viral diseases Need for hepatitis B screening test documented in this encounter Care Teams Drum Cleaner Relationship Specialty Start Date End Date Tavo Jo PA [address] [place] [id number] PCP - General Physician Veneer Splicer 06/22/23 documented as of this encounter Additional Source Comments The information contained in this document represents components of the legal health record. It is not the complete legal health record.[facility]
[2025-01-17 09:48] LABS: Hematocrit 41.9 % (37.0-47.0); Hemoglobin 13.4 g/dl (12.0-16.0); Mean Corpuscular HGB Conc 32.0 g/dl (31.0-35.0); Mean Corpuscular Hemoglobin 27.8 pg (27.0-33.0); Mean Corpuscular Volume 86.9 fL (80.0-98.0); NRBC Abs Auto 0.000 X10*3/uL (0.0-0.012); NRBC Pct Auto 0.0 /100WBC (0.0-0.2); Platelet Count 372 X10*3/uL (160-400); Red Blood Count 4.82 X10*6/uL (4.20-5.50); White Blood Count 9.5 X10*3/uL (4.8-10.8)
--- OUTSIDE RECORDS SUMMARY | 2025-01-17 10:09 | XMS_ITS | Clinical Summary ---
Author Organization [facility] Address [address] [place], [place] [id number] Phone Care Team Providers Care Shuttle Operator Name Role Phone Tavo Jo Primary Care Provider + Allergies No known active allergies Medications aspirin-acetamin ophen-caffeine (EXCEDRIN MIGRAINE) 250-250-65 mg per tablet Take 2 tablets by mouth as needed. Active MULTIVITAMIN ORAL Take by mouth daily. Active hydroCHLOROthiaz avi (HYDRODIURIL) 12.5 MG tablet Take 1 tablet by mouth every morning. Active levonorgestrel-e thinyl estradiol (SEASONALE) 0.15-0.03 mg per tabletIndication s:Encounter for contraceptive management, unspecified TAKE 1 TABLET BY MOUTH EVERY DAY 91 tablet 3 Active Additional Information Patient not taking.Reported on 01/17/2025 levonorgestrel and ethynyl estradiol (SEASONIQUE) 0.15 mg-30 mcg (84)/10 mcg (7) 3MPkIndications: Encounter for contraceptive management, unspecified type Take 1 tablet by mouth daily. 91 tablet 3 025 Active levonorgestrel and ethynyl estradiol (SEASONIQUE) 0.15 mg-30 mcg (84)/10 mcg (7) 3MPkIndications: Encounter for contraceptive management, unspecified type Take 1 tablet by mouth daily. 91 tablet 3 024 2024 Discontinued(R eorder) levonorgestrel-e thinyl estradiol (SEASONALE) 0.15-0.03 mg per tabletIndication s:Encounter for contraceptive management, unspecified take 1 tablet by mouth every day 91 tablet 3 024 2024 Discontinued Active Problems Problem Noted Date Diagnosed Date Family planning 06/23/2023 Overview (06/23/2023): Planning to conceive early 2024 On OCP x 19 years Assessment & Plan (06/23/2023 8:01 AM EDT): Unknown what her underlying ovulations are like, had sig amenorrhea prior to starting OCP; suggest stopping a few months prior to time of desired conception; sig risks exist with BMI of 47, incl GDM, LGA baby, gHTN and pre-eclampsia. Also risk miscarriage and difficulty conceiving Recommend starting daily folate now, eating more healthfully, increase exercise and try to lose 10% weight; if desired, see if GP will refer to [facility] weight management office to optimize her efforts and outcome Can also return for consult to go over options for genetic screening, etc Resolved Problems Problem Noted Date Diagnosed Date Resolved Date Irregular menses 08/02/2017 03/08/2022 Assessment & Plan (08/02/2017 5:32 PM EDT): Janae will try Seasonique. She will call if has bothersome side effects to consider other options. Encounters Date Type Department Care Team Description 01/17/2025 8:00 AM EDT Office Visit [facility] [address] [place] [address] [place] [address] Ella Vale MD Encounter for gynecological examination without abnormal finding (Primary Dx); Encounter for contraceptive management, unspecified type; Screening for cervical cancer; Screening for human immunodeficiency virus; Need for hepatitis C screening test; Need for hepatitis B screening test; Screen for STD (sexually transmitted disease) 12/27/2024 Refill [facility] [address] [place] [address] Janae Fox CNM Medication Refill from Last 3 Months Family History Medical History Relation Comments Heart attack Maternal Grandfather Hypertension Maternal Grandfather Stroke Maternal Grandfather Hypertension Maternal Grandmother Other Mother MVA Diabetes Paternal Grandmother Thyroid disease Paternal Grandmother Relation Status Comments Maternal Grandfather Maternal Grandmother Mother Paternal Grandmother Social History Tobacco Use Types Packs/Day Years Used Date Smoking Tobacco: Never Smokeless Tobacco: Never Tobacco Cessation:Counseling Given: Not Answered Alcohol Use Standard Drinks/Week Comments Yes 0 [...] on file Sexual Orientation Not on file Last Filed Vital Signs Vital Sign Reading Time Taken Comments Blood Pressure 132/82 01/17/2025 8:03 AM EDT Pulse - - Temperature - - Respiratory Rate - - Oxygen Saturation - - Inhaled Oxygen Concentration - - Weight 113.4 kg (250 lb) 01/17/2025 8:03 AM EDT pt reported Height 162.6 cm (5' 4 ) 06/22/2023 3:08 PM EDT Body Mass Index 42.91 06/22/2023 3:08 PM EDT Plan of Treatment Health Maintenance Due Date Last Done Comments POTASSIUM LEVEL 1988 DEPRESSION SCREENING 2000 HEPATITIS C SCREENING 2006 HIV ONE-TIME SCREENING (18-6 5 YEARS) 2006 PAP SMEAR 07/30/2023 07/29/2020, 08/02/2017, 08/02/2017 SCREENING FOR DIABETES 09/21/2023 INFLUENZA VACCINE (#1) 2024 COVID-19 VACCINE ( - 2024-2 6 season) 2024 Adult Td,Tdap Booster 07/12/2033 07/13/2023 SMOKING STATUS SCREENING (On ce After 26 Yrs) Completed 01/17/2025 HEPATITIS A VACCINES Aged Out No long er eligible based on patient's age to complete this topic HIB VACCINES Aged Out No longer eligi ble based on patient's age to complete this topic MENINGOCOCCAL VACCINES (ACWY) Aged Out No longer eligible based on patient's age to complete this topic MENINGOCOCCAL VACCINES (B) Aged Out N o longer eligible based on patient's age to complete this topic PNEUMOCOCCAL VACCINES (0-49 years) Aged Out No longer eligible b ased on patient's age to complete this topic Medical Devices Not on file Procedures Procedure Name Priority Date/Time Associated Diagnosis Comments PAP TEST Routine 07/29/2020 12:00 AM EDT from Last 3 Months or Most Recently Relevant to Health Maintenance Results * Pap Smear (07/29/2020 12:00 AM EDT) 07/29/2020 07/30/2020 9:1 8 AM EDT Narrative SEE NARRATIVE - 08/05/2020 1:49 [place] [address] Sandstone Inspector Repairer: Rena Keane MD MARKETING REPRESENTATIVE Cytology Report FINAL DIAGNOSIS A. PAP SMEAR (SUREPATH) CE: SPECIMEN ADEQUACY: Satisfactory for evaluation; transformation zone present. INTERPRETATION: NEGATIVE FOR INTRAEPITHELIAL LESION OR MALIGNANCY. Electronically Signed Out By: RITA Hernandez(ASCP) The Pap test is a screening test primarily for squamous cancers and precursors and has associated false-negative and false-positive results. New technologies such as liquid-based preparations may decrease but will not eliminate all false-negative results. Regular sampling and follow-up of unexplained clinical signs and symptoms are recommended to minimize false negative results. PROCEDURES/ADDENDA HPV Testing (Requested) Ordered Date: 07/30/2020 A. PAP SMEAR (SUREPATH) CE: Human Papilloma Virus Test Negative for high-risk human papillomavirus types 16, 18, 45 and the Other high risk probe set (Includes 31, 33, 35, 39, 51, 52, 56, 58, 59, 66, 68) by [employer] Onclarity HR-HPV analysis. Clinical correlation is advised. This HPV test was performed at [facility], [address] [place] [address]. This test has been FDA approved for SurePath cervical cytology specimens. The accuracy and precision of this test for all other specimen sources has been verified in the Cytopathology Laboratory of the [facility] and has not been cleared or approved by the U.S. Food and Drug Administration. Clinical correlation is advised. CLINICAL HISTORY Date of Last Menstrual Period: 06-12-2020 Other Clinical Conditions: Screening Pap SPECIMEN SOURCE A: PAP SMEAR (SUREPATH) CE Patient Name: JANAE PATEL : 1990 (Age: 29) Sex: F Institution: [facility] Location: [facility] Date of Collection: 07/29/2020 Date of Reported: 08/05/2020 13:49 Results to: Char King MSN, BS Char King PEST CONTROLLER CYTOLOGY ORDERABLES Final Resu lt SEE NARRATIVE from Last 3 Months or Most Recently Relevant to Health Maintenance Insurance [employer] BENEFITS ADMINISTRATORS [facility] BLUE BENEFITS ADMINISTRATORS Care Teams Shuttle Operator Relationship Specialty Start Date End Date Tavo Jo PA [address] [place] [address] PCP - General Physician Tobacco Drying Machine Operator 06/22/23 Additional Source Comments The information contained in this document represents components of the legal health record. It is not the complete legal health record.[facility]
[2025-01-17 10:10] LABS: Alanine Aminotransferase 21 U/L (0-31); Albumin Level 4.1 g/dL (3.5-5.0); Alkaline Phosphatase 64 U/L (39-117); Anion Gap 14 (12-20); Aspartate Amino Transferase 18 U/L (5-31); Blood Urea Nitrogen 13 mg/dL (9-16); Calcium 9.5 mg/dL (8.4-10.2); Carbon Dioxide 25 mmol/L (22-29); Chloride 105 mmol/L (96-108); Estimated Glomerular Filt Rate > 60; Potassium 4.0 mmol/L (3.3-5.1); Sodium 140 mmol/L (135-145); Total Protein 7.9 g/dL (6.5-8.0)
== END 2025-01-17 09:14 | disposition home or self-care (01) ==
LOC: HO.LAB 09:13
PROVIDERS: PCP Physician Assistant; Visit Provider Physician Assistant
DX: I10 Essential (primary) hypertension (principal)
CPT/HCPCS: 36415; 80053; 85027

== ENCOUNTER 2025-01-23 15:51 | Outpatient (AMB) | payer OTHER, SELFPAY ==
--- NOTE | 2025-01-23 16:05 | MHC.PC.OV ---
Vital Signs 01/23/25 16:06 Height 5 ft 2 in Weight 279 lb 6 oz BMI 51.1 BP 150/100 H Blood Pressure Location Lt brachial Position Sitting Respiration 18 Pulse 109 H Pulse Source Pulse Oximeter Temp 97.3 F Temp Source Temporal Artery Scan Pulse Oximetry (%) 99 Oxygen Delivery Method Room Air Intake Visit Reasons: Annual Exam Customer Service Advocate Required: No Accompanied by: Self / Same As Patient Allergies No Known Allergies Allergy (Verified 01/23/25 16:28) Medication List - Last Reconciled 01/23/25 by Tavo Jo PA-C cetirizine 10 mg PO DAILY 30 days hydrochlorothiazide 12.5 mg PO DAILY 90 days L norgest/e.estradiol-e.estrad 0.15 mg-30 mcg (84)/10 mcg (7) 1 tab PO DAILY meloxicam 15 mg PO DAILY PRN 14 days naproxen 375 mg PO BID 10 days Tobacco use date assessed: 01/23/25 Dental Screening Dental Screen Date: 01/23/25 Did you have a dental visit in the last 12 months?: Yes Did you have a dental problem in the last 6 months where you did not have access to dental care?: No Was dental information given to patient?: Patient has dentist HPI Annual Exam HPI Details Patient is a 34-year-old female here today for an annual physical. Patient has a past medical history significant for obesity and hypertension. Concerns-- Janae reports she has been having some trouble sleeping, she mentioned she will try melatonin to help her sleep. She does mentioned her significant other tells her she snores. I suspect she may have obstructive sleep apnea. We did discuss getting a home sleep study though she would like to hold off and work on weight reduction at this time. .. Hypertension: Blood pressure elevated today in office. She has not been taking frequency. She otherwise denies any headaches, chest pain and shortness of breath. She is willing to try a alternative antihypertensive to control her blood pressure. .. Class 3 obesity: Patient has had difficulty losing weight. She is interested in oral medication to help suppress appetite to lose weight. Will send for EKGs for evaluation of an arrhythmia before starting oral weight loss medication. Reviewed most recent labs in all within normal range. 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 [facility] Surgical History History of hymenectomy S/P tonsillectomy and adenoidectomy Family History Mother MVA (motor vehicle accident) IBD (inflammatory bowel disease) Father No problems noted. Social History (Updated 01/23/25 @ 16:31 by Tavo Jo PA-C) Housing: House Alcohol intake: current Alcohol intake frequency: holidays/special occasions only Alcohol type: beer Patient Tobacco Use Status: Never used Tobacco e-Cigarette/Vaping Use: Never Used service: No Current occupational status: employed Current occupation: [employer] Cognitive needs: No Hearing needs: No Vision needs: No Questionnaire Thrive Questionnaire Date Thrive assessed: 01/21/25 I am a: Patient What is your living situation today?: I have a steady place to live Within the past 12 months, did the food you bought not last and you didn't have the money to get more?: Never true Within the past 12 months, did you worry whether your food would run out before you got money to buy more?: Never true Do you have trouble paying for medicines?: No Do you have trouble getting transportation to medical appointments?: No Do you have trouble paying your heating and electricity bill?: No Do you have trouble taking care of your child, family member or friend?: No Do you have trouble with day-to-day activities such as bathing, preparing meals, shopping, managing finances, etc.?: No Are you currently unemployed and looking for a job?: No Are you interested in more education?: No Please select the resources that you would like help with: None Currently or been in a relationship where the following occur: I choose not to answer THRIVE Score: 0 AUDIT C Alcohol Use Questionnaire (AUDIT-C) 1. How often do you have a drink containing alcohol?: 2-4 times a month Total Score: 2 PHIL-7 AMB Questionnaire PHIL-7 Date PHIL - 7 assessed: 07/19/24 Feeling nervous, anxious, or on edge: 2 = More than half the days Not being able to stop or control worryin = More than half the days Worrying too much about different things: 0 = Not at all Trouble relaxin = Several days Being so restless that it is hard to sit still: 1 = Several days Becoming easily annoyed or irritable: 1 = Several days Feeling afraid as if something awful might happen: 0 = Not at all Total PHIL-7 score (0-4 normal; 5-9 mild; 10-14 moderate; 15-21 severe): 7 Source: Developed by Drs. Jere Prater, Abigail Simms, Emanuel Watt and colleagues, with an educational joseline from [employer]. Review of Systems Const Denies body aches, Denies chills, Denies excessive sweating, Denies fatigue, Denies fever(s) and Denies headache(s) Eyes Denies blurry vision ENT Denies dysphagia, Denies vertigo, Denies dizziness, Denies headache(s), Denies hearing loss and Denies tinnitus Card Denies chest pain, Denies chest pain with activity, Denies syncope, Denies irregular heart rhythm and Denies dyspnea Resp Denies chest congestion, Denies cough, Denies hemoptysis, Denies dyspnea and Denies wheezing GI Denies abdominal pain, Denies melena, Denies hematochezia, Denies coffee ground emesis, Denies dysphagia, Denies diarrhea, Denies nausea and Denies vomiting Denies urinary frequency, Denies dysuria, Denies urinary hesitancy and Denies urinary urgency Musc Denies arthralgias, Denies limited range of motion, Denies muscle cramps and Denies muscle weakness Skin/Breast Denies rash and Denies skin ulcer Neuro Denies Abnormal speech present, Denies confusion, Denies vertigo, Denies dizziness, Denies syncope, Denies headache(s), Denies memory loss and Denies seizure-like activity Psych Denies anxiety, Denies confusion, Denies depression, Denies memory loss, Denies panic attacks and Denies paranoia Endo Denies excessive sweating, Denies fatigue, Denies flushing, Denies polydipsia and Denies polyuria Aller/Immun Denies wheezing Physical exam (Primary Care) Vital Signs: Last Vital Signs Temp 97.3 F 01/23/25 16:06 Pulse 109 H 01/23/25 16:06 Resp 18 01/23/25 16:06 BP 150/100 H 01/23/25 16:06 Pulse Ox 99 01/23/25 16:06 Oxygen Delivery Method Room Air 01/23/25 16:06 BMI result Body Mass Index 51.1 BMI Assessment/Plan discussion: High BMI High, discussed plan: lifestyle, weight reduction, dietary and physical activity Tobacco/Smoking Status: Tobacco use Status Tobacco use date assessed 01/23/25 01/23/25 16:15 Patient Tobacco Use Status Never used Tobacco 01/23/25 16:31 e-Cigarette/Vaping Use Never Used 01/23/25 16:31 Thrive Assessment: Date of Thrive Assessment Date Thrive assessed 01/21/25 01/23/25 16:05 Currently or been in a relationship where the following occur: I choose not to answer Const General: cooperative, comfortable, no acute distress, alert and awake; No confusion Orientation/consciousness: oriented to person, oriented to place, patient oriented x3 and No confusion HENMT Head: Yes normocephalic Ears: external ears normal and TM's normal bilaterally Face and sinus: No sinus tenderness Mouth: Normal oral and palatal mucosa present and tongue normal Teeth and gingiva: dentition normal and gingiva normal Throat: Yes posterior oropharynx normal, Yes tonsils normal and Yes uvula midline Eyes Conjunctivae: conjunctivae normal Sclerae: sclerae normal Pupils: Equal, round and reactive pupils present EOM: EOMs intact bilaterally Direct Ophthalmoscopy: No no photophobia Neck Neck: Yes no lymphadenopathy, No tender and Yes no JVD Thyroid: Thyroid normal Carotids: no bruits Chest Chest palpation & inspection: no tenderness Resp Effort & Inspection: normal respiratory effort, no audible wheezes, not labored and no stridor Auscultation: no crackles, no rales, no rhonchi and no wheezes Cardio Jugular venous distension: no JVD Rate: regular rate, not bradycardic and not tachycardic Rhythm: regular rhythm Bruits: no carotid bruits Peripheral pulses: Peripheral pulses 2+ throughout GI Inspection: Yes normal to inspection, No abdominal wall ecchymosis and No visible herniation Palpation (GI): Soft to palpation, nontender, no guarding, not rigid and No hepatosplenomegaly present Auscultation: normoactive bowel sounds General: Yes no CVA tenderness Back/Spine/Pelvis Back: no CVA tenderness and No back tenderness Cervical Spine: cervical ROM normal Thoracic/Lumbar Spine: thoracic and lumbar spine normal to inspection, straight leg raise negative bilaterally, No thoraco-lumbar ROM limited and No lumbar spinal tenderness Skin Lesions: no lesions Rashes: no rashes Wounds: no wounds Neuro General: oriented to person, oriented to place, patient oriented x3, CN's II-XI intact bilaterally and No confusion Cranial nerves: Yes Equal, round and reactive pupils present and Yes Normal accommodation reflex present Cognition (Neuro): normal cognition Speech: No Abnormal speech present Gait exam (Neuro): Normal gait present Motor exam (neuro): 5/5 motor strength present throughout Extrem Right upper extremity: full ROM; no cyanosis Left upper extremity: full ROM; no cyanosis Right lower extremity: no edema Left lower extremity: no edema Psych Appearance: grossly normal Mental Status: mental status grossly normal Affect: normal affect Attitude: cooperative Thought process: Normal thought process present Coding Level of Care Code Est Pt Prev Care 18-39y(10082) Diagnoses Annual physical exam Z00.00 Primary hypertension I10 Hypertension type: primary hypertension Class 3 obesity E66.813 PHIL (generalized anxiety disorder) F41.1 Assessment & Plan Assessment & Plan (1) Annual physical exam: Code(s): Z00.00 - Encounter for general adult medical examination without abnormal findings Category: Medical Plan: As per HPI (2) HTN (hypertension): Code(s): I10 - Essential (primary) hypertension Category: Medical Qualifiers: Hypertension type: primary hypertension Qualified Code(s): I10 - Essential (primary) hypertension Plan: Patient's blood pressure elevated today in office. She does not regularly check her blood pressure at home. Will start losartan 25 mg as an alternative blood pressure medication. Will discontinue hydrochlorothiazide due to side effects or urinary frequency.. Goal blood pressures to remain below 140/90 (3) Class 3 obesity: Code(s): E66.813 - Obesity, class 3 Category: Medical Plan: Patient does understand her BMI is above 50 will work on better eating habits and more physical activity to reduce her weight. Patient interested in oral weight loss medication to help kick start weight loss. Will send for EKGs for evaluation of an arrhythmia before starting medication. (4) PHIL (generalized anxiety disorder): Code(s): F41.1 - Generalized anxiety disorder Category: Medical Plan: Patient's PHIL-7 score positive for anxiety which has been existing condition for her. She does have personal issues that cause her more stress and anxiety. She is not interested in medication or mental health therapy at this time. Orders: Orders ECG 12 lead EKG 01/23/25 E66.813 - Obesity, class 3 Comprehensive Met. Panel 01/23/25 I10 - Essential (primary) hypertension Medications: New losartan 25 mg PO DAILY 30 days 30 tabs 1RF I10 - Essential (primary) hypertension losartan 25 mg PO DAILY 30 tabs 1RF 30 days I10 - Essential (primary) hypertension Discontinued hydrochlorothiazide Discontinued Reason: Doctor's Order 12.5 mg PO DAILY 90 days 90 tabs 1RF I10 - Essential (primary) hypertension
[2025-01-23 16:06] VITALS: BP 150/100; PULSE 109; RESP 18; TEMP 36.3; O2SAT 99; BMI 51.1
--- OUTSIDE RECORDS SUMMARY | 2025-01-23 20:02 | XMS_ITS | Clinical Summary ---
Author Organization [facility] Address [address] [place] [id number] Phone Care Team Providers Care Rn Hospice Name Role Phone Tavo Jo Primary Care Provider + Allergies No known active allergies Medications aspirin-acetamino phen-caffeine (EXCEDRIN MIGRAINE) 250-250-65 mg per tablet Take 2 tablets by mouth as needed. Active MULTIVITAMIN ORAL Take by mouth daily. Active hydroCHLOROthiazi de (HYDRODIURIL) 12.5 MG tablet Take 1 tablet by mouth every morning. 06/09/19 24 Active levonorgestrel and ethynyl estradiol (SEASONIQUE) 0.15 mg-30 mcg (84)/10 mcg (7) 3MPkIndications:E ncounter for contraceptive management, unspecified type Take 1 tablet by mouth daily. 91 tablet 3 01/18/20 25 Active levonorgestrel and ethynyl estradiol (SEASONIQUE) 0.15 mg-30 mcg (84)/10 mcg (7) 3MPkIndications:E ncounter for contraceptive management, unspecified type Take 1 tablet by mouth daily. 91 tablet 3 06/23/19 24 025 Discontinued(Re order) levonorgestrel-et hinyl estradiol (SEASONALE) 0.15-0.03 mg per tabletIndications :Encounter for contraceptive management, unspecified take 1 tablet by mouth every day 91 tablet 3 12/16/19 24 025 Discontinued levonorgestrel-et hinyl estradiol (SEASONALE) 0.15-0.03 mg per tabletIndications :Encounter for contraceptive management, unspecified TAKE 1 TABLET BY MOUTH EVERY DAY 91 tablet 3 01/02/20 25 025 Discontinued Active Problems Problem Noted Date Diagnosed [...] desired, see if GP will refer to [facility] weight management office to optimize her [...] Office Visit [facility] [address] [place] [address] Ella Vale MD Encounter for gynecological examination without abnormal finding (Primary Dx); Encounter for contraceptive management, unspecified type; Screening for human immunodeficiency virus; Need for hepatitis C screening test; Need for hepatitis B screening test; Screen for STD (sexually transmitted disease) 12/27/2024 Refill [facility] [address] [place] [address] Janae Fox CNM Medication Refill from Last [...] SEE NARRATIVE - 08/05/2020 1:49 [place] [address] Demonstrator Knitting: Rena Keane MD BASIC SCIENCES PROFESSOR Cytology Report FINAL DIAGNOSIS A. PAP SMEAR [...] 52, 56, 58, 59, 66, 68) by [employer] Onclarity HR-HPV analysis. Clinical correlation is advised. This HPV test was performed at [facility], [address] [place] [address]. This test has been FDA approved for SurePath cervical cytology specimens. The accuracy and precision of this test for all other specimen sources has been verified in the Cytopathology Laboratory of the [facility] and has not been cleared or approved by the U.S. Food and Drug Administration. Clinical correlation is advised. CLINICAL HISTORY Date of Last Menstrual Period: 06-12-2020 Other Clinical Conditions: Screening Pap SPECIMEN SOURCE A: PAP SMEAR (SUREPATH) CE Patient Name: JANAE PATEL : 1990 (Age: 29) Sex: F Institution: [facility] Location: [facility] Date of Collection: 07/29/2020 Date of Reported: 08/05/2020 13:49 Results to: Char King MSN, BS us Char King SUPERVISOR TUMBLING AND ROLLING CYTOLOGY ORDERABLES Final Resu lt SEE NARRATIVE from Last 3 Months or Most Recently Relevant to Health Maintenance Insurance [employer] [address] [place] [address] One Hour [employer]ENEF[employer] ADMINIST[employer] [address] [place] [address] One Hour Translation [facility] ADMINIST[employer] [address] [address] [address] [employer] BENEFITS ADMINISTRATORS [facility] BLUE BENEFITS ADMINISTRATORS Care Teams Rn Hospice Relationship Specialty Start Date End Date Tavo Jo PA [address] [place] [id number] PCP - General Physician Safety Deposit Boxes Custodian 06/22/23 Additional Source Comments The information contained in this document represents components of the legal health record. It is not the complete legal health record.[facility]
== END 2025-01-23 16:53 | disposition home or self-care (01) ==
LOC: HO.HMCH 15:52
PROVIDERS: PCP Physician Assistant; Visit Provider Physician Assistant
DX: Z00.00 Encounter for general adult medical examination without abnormal findings (principal); I10 Essential (primary) hypertension; E66.813 Obesity, class 3; Z68.43 Body mass index [BMI] 50.0-59.9, adult; F41.1 Generalized anxiety disorder